=== PATIENT | female | born 1995 | race Hispanic/Latino ===

== ENCOUNTER 2016-07-26 04:49 | Outpatient (CLI) | payer OTHER ==
[~2016-07-26] VITALS: Ht 157.5 cm; Wt 69.0 kg
[~2016-07-26 04:49] MED LIST: ANUS2.5C2 PR; DOCU10CA PO; IBUPROFEN PO; NUPE1OIN2 TOP; TYLENOL PO; VITAPRTA PO
[2016-07-26 04:59] VITALS: BP 126/72
[2016-07-26 05:00] VITALS: BP 126/72
[2016-07-26 07:18] VITALS: BP 111/88
[2016-07-26 08:33] VITALS: BP 116/72
[2016-07-26 09:45] VITALS: BP 117/68
[2016-07-26 11:11] VITALS: BP 122/70
--- NOTE | 2016-07-26 12:16 | HPE ---
DATE OF ADMISSION: 07/26/2016 This lady is a 21-year-old, 2, para 1, last menstrual period 11/10/2015, estimated date of confinement (EDC) of 08/16/2016 at 36 and 6 weeks of gestation with uterine irritability. Monitored here for 4 hours. Throughout the 4 hours, her contractions spaced out. She had a category 1 strip. Cervix had not changed after three examinations. Her past history is on 06/21/2014, 40-week spontaneous vaginal delivery, female, 8 pounds 11 ounces with epidural. Risk factors is she is Group B streptococcus (GBS) positive, has asthma and is on albuterol on a as needed basis. Her laboratories show O+, HIV negative, hepatitis negative, RPR negative, rubella immune. Varicella nonimmune. Pap normal. Urine was GBS positive. Gonorrhea and Chlamydia negative. 1-hour glucose 97. On examination, symphysis fundus height is 37, vertex, OA posterior, high, soft, 50% effaced, maybe 1-2 cm. No vaginal bleeding or no vaginal loss. Blood pressure is 117/68, respirations are 18, pulse is 70, temperature 99.4, but she has blankets on her and she had the heat cranked up to 90 degrees in her room. Urine is 1.010, pH 7, negative, negative, negative. She is normocephalic, atraumatic. Neck with full range of motion. Pupils equal and reactive to light. Distal pulses symmetric. No evidence of DVT, PE or superficial phlebitis. Chest is clear bilaterally to bases. No wheezes or rhonchi. Uterus is nontender. Four quadrant bowel sounds. Appropriate symphysis fundus height. No rashes or lesions or pruritus. No arthralgia, myalgia. No complaints of cough, wheezes, shortness of breath or dyspnea on exertion. No allergies. No chest pain. Not bleeding. Neuro complete. No incontinence, urgency, frequency. No nausea, vomiting, diarrhea or constipation. No diabetic issues. Pap smear was normal. PAST SURGICAL HISTORY: Unremarkable. FAMILY HISTORY: Noncontributory. She does not smoke or drink. She does not abuse drugs. She is . She is in the . In summary, we have a 36 and 6 weeks of gestation with early uterine irritability. After 4 hours of evaluation and three examinations, no change in her cervix. She was discharged with precautions and also pelvic rest and quarters, as well as kick chart, premature rupture of membranes, labor, bleeding to contact us immediately. The patient has a followup in the clinic next week.
== END 2016-07-26 11:25 | disposition home or self-care (01) ==
LOC: M LDO 04:49
PROVIDERS: ATTEND Obstetrics & Gynecology
DX: O62.0 Primary inadequate contractions (principal); Z3A.36 36 weeks gestation of pregnancy; O98.513 Other viral diseases complicating pregnancy, third trimester; B95.1 Streptococcus, group B, as the cause of diseases classified elsewhere; O99.513 Diseases of the respiratory system complicating pregnancy, third trimester; J45.909 Unspecified asthma, uncomplicated; Z79.899 Other long term (current) drug therapy

== ENCOUNTER 2016-08-01 14:07 | Outpatient (CLI) | payer OTHER ==
[2016-08-01] VITALS (12 sets, daily range): BP systolic 112–138; BP diastolic 59–82
[~2016-08-01] VITALS: Ht 157.5 cm; Wt 70.0 kg
[2016-08-01 15:14] LABS: MEAN CORPUSCULAR HEMOGLOBIN 31.5 pg (27.0-33.0); MEAN CORPUSCULAR HGB CONC 34.4 g/dl (32.0-36.5); MEAN CORPUSCULAR VOLUME 91.5 fl (80.0-96.0); WHITE BLOOD COUNT 11.2 K/mm3 (4.0-10.0)
[2016-08-01] MEDS: ACETAMINOPHEN 500 MG TAB PO PRN ×2 (15:23→20:58)
[2016-08-01 15:25] LABS: ALBUMIN 2.8 GM/DL (3.2-5.2); ALBUMIN/GLOBULIN RATIO 0.76 (1.00-1.93); ALKALINE PHOSPHATASE 202 U/L (45-117); ALT/SGPT 16 U/L (12-78); ANION GAP 9 MEQ/L (8-16); AST/SGOT 16 U/L (15-37); BILIRUBIN,TOTAL 0.3 MG/DL (0.2-1.0); BLOOD UREA NITROGEN 9 MG/DL (7-18); CALCIUM LEVEL 8.9 MG/DL (8.5-10.1); CARBON DIOXIDE LEVEL 24 MEQ/L (21-32); CHLORIDE LEVEL 106 MEQ/L (98-107); CREATININE FOR GFR 0.61 MG/DL (0.55-1.02); GLOMERULAR FILTRATION RATE > 60.0 (>60); GLUCOSE, FASTING 93 MG/DL (70-105); POTASSIUM SERUM 3.9 MEQ/L (3.5-5.1); SODIUM LEVEL 139 MEQ/L (136-145); TOTAL PROTEIN 6.5 GM/DL (6.4-8.2); URIC ACID 4.5 MG/DL (2.6-6.0)
--- NOTE | 2016-08-01 17:37 | IPNPDOC ---
Text Note Date of Service The patient was seen on 08/01/16. NOTE Subjective: Natasha is a 20yo with SIUP at 37w6d who presented to clinic today for routine OB appointment and was noted to have a bp of 143/73. She has a hx of pre-eclampsia in her prior and endorses having Mg during her labor with her previous child. She was sent to L&D for bp monitoring and lab workup. Her appointment was at 1330 and by 1700, with bp monitoring q30 min, she had no further mild range bps and was completely normotensive. She did note to her nurse that she had a headache /, for which she receive 1g of PO Tylenol with complete resolution of her headache. Her lab workup was completely normal with the exception of urine protein:creatinine of 0.38. ROS: Admits: Gross movement, good oral hydration. Denies: Vaginal bleeding/loss of fluid, vision changes, abdominal pain, SOB Objective: BP in clinic 143/73 but bps q30min over 2 hours all normotensive since NST: Reactive with +accels, -decels, mod theresa [place]: rare CTX Physical Exam- General: WDWN gravid female in NAD Mental : AAOx3 Abdominal: Soft NT/ND without guarding or rebound Extremity: trace edema in LE bilaterally Labs: CBC: WBC 11.2, H/H 12.8/37.3, plt 217 CMP: Na 139, K 3.9, Cl 106, HCO3 24, BUN 9, creat 0.61, glucose 93 AST 16, ALT 16, uric acid 4.5 Urine protein 23.9/creatinine 62.2 = 0.38 Assessment: Natasha is a 20yo with SIUP at 37w6d who does not yet quite meet criteria for pre-eclampsia. Only one elevated bp reading in , today, was mild range with only normotensive values since starting observation on L&D over 2 hours ago. All labs normal with exception of urine protein:creatinine of 0.38. Slight headache on arrival completely resolved with Tylenol, no symptoms of pre-E. Benign physical exam. Reactive NST shows reassuring status. course uncomplicated. PMHx significant for pre-E with prior during labor, hx of asthma with prn albuterol. She is GBS positive based on early urine specimen. Also varicella non-immune. Plan: -I discussed with patient that she does not yet quite meet criteria for diagnosis of pre-eclampsia since only 1 isolated mild range bp in clinic with normotensive values since, along with her urine prot:creat elevation -Plan for observation for 24 hours to evaluate for any further elevated bps. If she has another elevated bp after 1930 (6 hours after her isolated bp elevation in clinic), will proceed with induction of labor since she is >37wk gestation. However, if that bp was truly isolated and she has no further elevations overnight, will plan for discharge with close follow-up for bps in clinic -Patient and seem amenable to this plan and all questions answered -Regular diet while she is here, NST q shift given reassuring status thus far, and vitals q2hr to monitor bps -medrec reviewed Dr. Rosalinda Ivory MD [place] ADELA VS,Heather, I+O VS, Heather, I+O Laboratory Tests 08/01/16 14:49 Calcium Level 8.9, Aspartate Amino Transf (AST/SGOT) 16, Alanine Aminotransferase (ALT/SGPT) 16, Alkaline Phosphatase 202 H, Total Bilirubin 0.3 , Uric Acid 4.5, Total Protein 6.5, Albumin 2.8 L, Red Blood Count 4.08, Mean Corpuscular Volume 91.5, Mean Corpuscular Hemoglobin 31.5, Mean Corpuscular Hemoglobin Concent 34.4, Red Cell Distribution Width 13.0 Vital Signs Date Time Temp Pulse Resp B/P Pulse Ox O2 Delivery O2 Flow Rate FiO2 08/01/16 14:33 97.9 72 18 128/78 ROSALINDA IVORY MD Aug 01, 2016 17:37
[2016-08-02] VITALS (8 sets, daily range): BP systolic 88–131; BP diastolic 50–86
--- NOTE | 2016-08-02 07:56 | IPNPDOC ---
Text Note Date of Service The patient was seen on 08/02/16. NOTE Subjective: Natasha is a 20yo with SIUP at 38w0d who was kept for 24- hr observation after presenting to clinic yesterday for routine OB appointment and being noted to have a bp of 143/73. She has a hx of pre-eclampsia in her prior and endorses having Mg during her labor with her previous child. She was sent to L&D for bp monitoring and lab workup. Her lab workup was completely normal with the exception of urine protein:creatinine of 0.38, so she was kept to see if she would have another mild range bp and then meet criteria for pre-eclampsia. However, overnight, Natasha's bp's have been extremely normotensive, even down to 80's/50's, with no repeated mild range bp. She did have a slight headache at one point for which she received Tylenol, and had complete resolution of headache. She has had no vision changes, no abdominal pain, no SOB. No painful ctx, no LOF, no vaginal bleeding and she feels good movement. Objective: BP's overnight all normotensive NSTs: Reactive with +accels, -decels, mod theresa [place]: rare CTX Physical Exam- General: WDWN gravid female in NAD Mental : AAOx3 Cardiac: S1S2 present, no murmur Lungs: CTAB with no w/c/r Abdominal: Soft NT/ND without guarding or rebound Extremity: trace edema in LE bilaterally Labs: 08/01/16 CBC: WBC 11.2, H/H 12.8/37.3, plt 217 CMP: Na 139, K 3.9, Cl 106, HCO3 24, BUN 9, creat 0.61, glucose 93 AST 16, ALT 16, uric acid 4.5 Urine protein 23.9/creatinine 62.2 = 0.38 Assessment: Natasha is a 20yo with SIUP at 38w0d who still does not meet criteria for pre-eclampsia having protein: creatinine of 0.38, but only 1 mild range bp ever noted in , yesterday. Completely normotensive overnight. No symptoms of pre-E. All other PIH labs normal. Benign physical exam. Reactive NSTs show reassuring status. course uncomplicated. PMHx significant for pre-E with prior during labor, hx of asthma with prn albuterol. She is GBS positive based on early urine specimen. Also varicella non-immune. Plan: -Continue observation for total of 24 hours to evaluate for any further elevated bps. If she has another elevated bp, will proceed with induction of labor. However, if that bp was truly isolated and she has no further elevations , will plan for discharge this afternoon with close follow-up for bps in clinic -Plan re-discussed with patient and she is amenable -Regular diet while she is here, NST q shift given reassuring status thus far, and vitals q2hr to monitor bps Dr. Zoie Ivory MD [place] [facility] VS,Fishbone, I+O VS, [place], I+O Laboratory Tests 08/01/16 14:49 Calcium Level 8.9, Aspartate Amino Transf (AST/SGOT) 16, Alanine Aminotransferase (ALT/SGPT) 16, Alkaline Phosphatase 202 H, Total Bilirubin 0.3 , Uric Acid 4.5, Total Protein 6.5, Albumin 2.8 L, Red Blood Count 4.08, Mean Corpuscular Volume 91.5, Mean Corpuscular Hemoglobin 31.5, Mean Corpuscular Hemoglobin Concent 34.4, Red Cell Distribution Width 13.0 Vital Signs Date Time Temp Pulse Resp B/P Pulse Ox O2 Delivery O2 Flow Rate FiO2 08/02/16 06:10 98.2 70 18 115/75 98 I&O- Last 24 Hours up to 6 AM 08/02/16 06:00 Intake Total 360 ml Output Total 1000 ml Balance -640 ml ZOIE IVORY MD Aug 02, 2016 07:56
--- NOTE | 2016-08-02 14:15 | IPNPDOC ---
Obstetrical Progress Note Date of Service The patient was seen on 08/02/16 at 14:10. Progress Note Natasha is a 20yo with SIUP at 38+1 who was kept for 24-hr observation after presenting to clinic yesterday for routine OB appointment and being noted to have a bp of 143/73. She has a hx of pre-eclampsia in her prior and endorses having Mg during her labor with her previous child. She was sent to L&D for bp monitoring and lab workup. Her lab workup was completely normal with the exception of urine protein:creatinine of 0.38, so she was kept to see if she would have another mild range bp and then meet criteria for pre- eclampsia. However, overnight, Natasha's bp's have been extremely normotensive , even down to 80's/50's, with no repeated mild range bp. She did have a slight headache at one point for which she received Tylenol, and had complete resolution of headache. She has had no vision changes, no abdominal pain, no SOB. No painful ctx, no LOF, no vaginal bleeding and she feels good movement. Objective: BP's throughout stay all normotensive NSTs: Reactive with mod variability, + accels, -decels [place]: rsingle CTX noted Physical Exam- General: WDWN gravid female in NAD Mental : AAOx3 Cardiac: S1S2 present, no murmur Lungs: CTAB with no w/c/r Abdominal: Soft NT/ND without guarding or rebound Extremity: trace edema in LE bilaterally Labs: 08/01/16 CBC: WBC 11.2, H/H 12.8/37.3, plt 217 CMP: Na 139, K 3.9, Cl 106, HCO3 24, BUN 9, creat 0.61, glucose 93 AST 16, ALT 16, uric acid 4.5 Urine protein 23.9/creatinine 62.2 = 0.38 Assessment: Natasha is a 20yo with SIUP at 38+1 who still does not meet criteria for pre-eclampsia having protein: creatinine of 0.38, but only 1 mild range bp ever noted in , yesterday. Completely normotensive overnight. No symptoms of pre-E. All other PIH labs normal. Benign physical exam. Reactive NSTs show reassuring status. course uncomplicated. PMHx significant for pre-E with prior during labor, hx of asthma with prn albuterol. She is GBS positive based on early urine specimen. Also varicella non-immune. Plan: -Discharge to home now with strict return precautions for PERSON, visual changes, RUQ pain, and n/v. -f/u in OB clinic tomorrow [id number] for blood pressure check. Kelly TORRES, VIK VS, I&O, 24H, Fishbone Vital Signs/I&O Vital Signs Date Time Temp Pulse Resp B/P Pulse Ox O2 Delivery O2 Flow Rate FiO2 08/02/16 13:51 98.4 86 18 125/86 08/02/16 06:10 98 I&O- Last 24 Hours up to 6 AM 08/02/16 05:59 Intake Total 240 ml Output Total 400 ml Balance -160 ml Laboratory Data 24H LABS Laboratory Tests 2 08/01/16 14:49: Blood Urea Nitrogen 9, Creatinine 0.61, Sodium Level 139, Potassium Level 3.9, Chloride Level 106, Carbon Dioxide Level 24, Calcium Level 8.9, Aspartate Amino Transf (AST/SGOT) 16, Alanine Aminotransferase (ALT/SGPT) 16, Alkaline Phosphatase 202H, Total Bilirubin 0.3, Uric Acid 4.5, Total Protein 6.5, Albumin 2.8L, Albumin/Globulin Ratio 0.76L, Anion Gap 9, Glomerular Filtration Rate > 60.0 CBC/BMP Laboratory Tests 08/01/16 14:49 Calcium Level 8.9, Aspartate Amino Transf (AST/SGOT) 16, Alanine Aminotransferase (ALT/SGPT) 16, Alkaline Phosphatase 202 H, Total Bilirubin 0.3 , Uric Acid 4.5, Total Protein 6.5, Albumin 2.8 L, Red Blood Count 4.08, Mean Corpuscular Volume 91.5, Mean Corpuscular Hemoglobin 31.5, Mean Corpuscular Hemoglobin Concent 34.4, Red Cell Distribution Width 13.0 KELLY MURRY CNM Aug 02, 2016 14:15
== END 2016-08-02 14:05 | disposition home or self-care (01) ==
LOC: M LDO 14:07 → M OBS 19:00 → M LDO 08-02 14:05
PROVIDERS: ATTEND Obstetrics & Gynecology
DX: O26.893 Other specified pregnancy related conditions, third trimester (principal); R03.0 Elevated blood-pressure reading, without diagnosis of hypertension; O09.93 Supervision of high risk pregnancy, unspecified, third trimester; Z3A.37 37 weeks gestation of pregnancy

== ENCOUNTER 2016-08-12 05:42 | Inpatient (IN) | payer OTHER ==
[~2016-08-12] VITALS: Ht 157.5 cm; Wt 79.0 kg
[2016-08-12] MEDS ORDERED: OXYTOCIN 30 UNITS IN 0.9% NaCl 500ML IV BAG (J2590) As Ordered ONE (06:03)
[2016-08-12] MEDS ORDERED: OXYTOCIN DRIP 30 UNITS in APPROPRIATE DILUENT 1 EA IV SCH (06:10)
[2016-08-12] MEDS ORDERED: MEASLES,MUMPS,RUBELLA VACCINE INJ (MMR-II) (90707) SC SCH (06:15)
[2016-08-12] MEDS ORDERED: DOCUSATE SODIUM 100 MG CAP PO PRN (06:15)
[2016-08-12] MEDS ORDERED: RHOGAM 300 MCG (1500 IU) INJ (J2790) IM SCH (06:15)
[2016-08-12] MEDS ORDERED: DIBUCAINE 1% OINTMENT 30GM TOP PRN (06:15)
[2016-08-12] MEDS ORDERED: OXYTOCIN INJ 10 UNITS/ML VIAL (J2590) IM ONE (06:15)
[2016-08-12] MEDS ORDERED: ANUSOL HC CREAM 30GM TOP PRN (06:15)
[2016-08-12] MEDS ORDERED: METHYLERGONOVINE MALEATE 0.2 MG TAB PO PRN (06:15)
[2016-08-12 06:23] LABS: CORD GAS ABE A -2.2; CORD GAS ABE V -3.5; CORD GAS HCO3 A 23.7 MEQ/L; CORD GAS HCO3 V 19.5 MEQ/L; CORD GAS O2 SAT A 22.9 %; CORD GAS O2 SAT V 63.8 %; CORD GAS PCO2 A 45.5 mmHg; CORD GAS PCO2 V 27.9 mmHg; CORD GAS PH A 7.334 UNITS; CORD GAS PH V 7.462 UNITS; CORD GAS PO2 A 14.8 mmHg; CORD GAS PO2 V 26.2 mmHg; CORD GAS SBC A 21.4 MEQ/L; CORD GAS TCO2 A 25.1 MEQ/L; CORD GAS TCO2 V 20.3 MEQ/L
[2016-08-12] MEDS: ACETAMINOPHEN 500 MG TAB PO PRN ×2 (07:09→21:25)
[2016-08-12 08:06] LABS: MEAN CORPUSCULAR HEMOGLOBIN 31.9 pg (27.0-33.0); MEAN CORPUSCULAR HGB CONC 34.3 g/dl (32.0-36.5); MEAN CORPUSCULAR VOLUME 92.9 fl (80.0-96.0); WHITE BLOOD COUNT 19.1 K/mm3 (4.0-10.0)
[2016-08-12] MEDS: PRENATAL VITAMIN TAB PO SCH (09:00)
[2016-08-12 18:27] VITALS: BP 141/73
[2016-08-12] MEDS: IBUPROFEN 800 MG TAB PO PRN (18:36)
[2016-08-13] MEDS: IBUPROFEN 800 MG TAB PO PRN ×2 (04:37→16:09)
[2016-08-13 05:29] VITALS: BP 119/72
[2016-08-13 06:45] LABS: MEAN CORPUSCULAR HEMOGLOBIN 32.3 pg (27.0-33.0); MEAN CORPUSCULAR HGB CONC 34.3 g/dl (32.0-36.5); MEAN CORPUSCULAR VOLUME 94.2 fl (80.0-96.0); RED CELL DISTRIBUTION WIDTH 13.4 % (11.5-14.5); WHITE BLOOD COUNT 10.8 K/mm3 (4.0-10.0)
[2016-08-13] MEDS: ACETAMINOPHEN 500 MG TAB PO PRN ×2 (08:10→21:17)
[2016-08-13] MEDS: PRENATAL VITAMIN TAB PO SCH (08:10)
--- NOTE | 2016-08-13 12:52 | HPE ---
DATE OF ADMISSION: 08/12/2016 This lady is a 21-year-old 2, para 1, last menstrual period (LMP) 11/10/2015, estimated date of confinement (EDC) 08/16/2016, history of active labor since 01008/12/2016. Came in at 6 o'clock this morning. Ruptured membranes, fully dilated. Delivered precipitously a live male weighing 7 pounds 0 ounces, 3446 grams scores of 9 and 9 at one and five minutes respectively. Arterial and venous pH performed. Placenta delivered spontaneously thereafter. Three-vessel cord, membranes and tissues intact. Perineum was intact. Uterus is a bit atonic, required intramuscular (IM) Pitocin 10 mg and then an intravenous (IV) of Pitocin 125 an hour. PAST HISTORY: In 2013, at 40 weeks spontaneous delivery of the female, 8 pounds 11 ounces, with epidural. RISK FACTORS: She is group B Streptococcus (GBS) positive and has asthma. LABORATORIES: Show O+, HIV negative, rubella immune. Varicella nonimmune, rapid plasma reagin (RPR) negative. Pap normal. Group B Streptococcus (GBS) urine was positive. One-hour glucose 97. Cerebrospinal fluid (CF) declined. SUMMARY: I have an active lady in fully dilated precipitously delivered on entering the door, a live male . The patient and baby tolerated the procedure well.
[2016-08-13 18:03] VITALS: BP 110/58
--- NOTE | 2016-08-14 05:19 | IPNPDOC ---
Text Note Date of Service The patient was seen on 08/14/16. NOTE Natasha is a 21yo doing well on PPD 2 s/p uncomplicated at term. She is bottle feeding. Lochia normal, spontaneously voiding and ambulating without difficulty. Tolerating regular diet. Denies f/c/n/v/SOB/CP/PERSON/abdominal pain. Vitals wnl, afebrile Exam: General: WDWN, NAD, resting comfortably Cardiac: S1S2 present, no murmur Lungs: CTAB without wheeze/crackles Abdomen: soft, NTTP, fundus firm u-2cm Extremities: no tenderness of calves bilaterally Assessment: Natasha is a 21yo doing well on PPD 2 s/p uncomplicated at term. Meeting all milestones. No e/o infection, hemodynamically stable. Plan: -discharge to home with routine follow-up for 6wk PP visit -home meds already given from clinic stock -desires Mirena IUD for contraception Dr. Zoie Ivory MD [place] ADELA VS,Heather, I+O VS, Heather, I+O Laboratory Tests 08/13/16 06:21 Red Blood Count 3.33 L, Mean Corpuscular Volume 94.2, Mean Corpuscular Hemoglobin 32.3, Mean Corpuscular Hemoglobin Concent 34.3, Red Cell Distribution Width 13.4 Vital Signs Date Time Temp Pulse Resp B/P Pulse Ox O2 Delivery O2 Flow Rate FiO2 08/13/16 18:03 98.1 72 18 110/58 ZOIE IVORY MD Aug 14, 2016 05:19
[2016-08-14 06:28] VITALS: BP 133/69
[2016-08-14] MEDS ORDERED: ACET50TA PO (08:31)
[2016-08-14] MEDS ORDERED: IBUP-1114 PO (08:31)
[2016-08-14] MEDS ORDERED: COLA100C PO (08:31)
== END 2016-08-14 10:45 | disposition home or self-care (01) | DRG 775 ==
LOC: M LDO 05:42 → M LDI 05:45 → M OBS 11:27
PROVIDERS: ADMIT Obstetrics & Gynecology; ATTEND Obstetrics & Gynecology
PROC: 10E0XZZ Delivery of Products of Conception, External Approach (ICD-10-PCS; principal; 2016-08-12)
DX: O62.3 Precipitate labor (principal); O99.824 Streptococcus B carrier state complicating childbirth; Z3A.39 39 weeks gestation of pregnancy; O99.52 Diseases of the respiratory system complicating childbirth; J45.909 Unspecified asthma, uncomplicated; Z37.0 Single live birth

== ENCOUNTER 2016-08-21 15:06 | Emergency (ER) | payer OTHER ==
[~2016-08-21] VITALS: Ht 157.5 cm; Wt 68.0 kg
[~2016-08-21 15:06] MED LIST changes: +ACET50TA PO; +COLA100C PO; +IBUP-1114 PO
[2016-08-21] MEDS ORDERED: METOCLOPRAMIDE INJ 10MG/2ML VIAL (J2765) IV ONE (16:30)
[2016-08-21] MEDS ORDERED: NS 1,000 ML IV ONE (16:30)
[2016-08-21] MEDS ORDERED: PANTOPRAZOLE 40MG INJ (PROTONIX) (C9113) IV ONE (16:30)
[2016-08-21] MEDS ORDERED: GI COCKTAIL 50ML BTL(HYOSCYAMINE/MAALOX/LIDOCAINE VISCOUS)(1:3:1) PO ONE (16:30)
[2016-08-21 16:48] LABS: BASO % 0.2 % (0.0-1.0); EOS # 0.3 K/mm3 (0.0-0.50); LARGE UNSTAINED CELL # 0.1 K/mm3 (0.0-0.4); LARGE UNSTAINED CELL % 1.2 % (0.0-4.0); LYMPH # 2.3 K/mm3 (1.5-6.5); LYMPH % 22.1 % (24.0-44.0); MEAN CORPUSCULAR HEMOGLOBIN 31.4 pg (27.0-33.0); MEAN CORPUSCULAR HGB CONC 33.4 g/dl (32.0-36.5); MONO # 0.3 K/mm3 (0.0-0.8); MONO % 3.1 % (0.0-5.0); NEUTROPHILS # 6.9 K/mm3 (1.8-7.7); NEUTROPHILS % 70.5 % (36.0-66.0); PLATELET COUNT, AUTOMATED 414 k/mm3 (150-450); RED CELL DISTRIBUTION WIDTH 12.5 % (11.5-14.5); WHITE BLOOD COUNT 9.8 K/mm3 (4.0-10.0)
[2016-08-21 16:54] LABS: ALBUMIN/GLOBULIN RATIO 0.75 (1.00-1.93); ALKALINE PHOSPHATASE 180 U/L (45-117); ALT/SGPT 21 U/L (12-78); ANION GAP 9 MEQ/L (8-16); AST/SGOT 21 U/L (15-37); BILIRUBIN,DIRECT < 0.1 MG/DL (0.0-0.2); BILIRUBIN,TOTAL 0.2 MG/DL (0.2-1.0); BLOOD UREA NITROGEN 14 MG/DL (7-18); CALCIUM LEVEL 9.1 MG/DL (8.5-10.1); CARBON DIOXIDE LEVEL 26 MEQ/L (21-32); CHLORIDE LEVEL 107 MEQ/L (98-107); CREATININE FOR GFR 0.74 MG/DL (0.55-1.02); GLOMERULAR FILTRATION RATE > 60.0 (>60); GLUCOSE, FASTING 97 MG/DL (70-105); POTASSIUM SERUM 3.9 MEQ/L (3.5-5.1); SODIUM LEVEL 142 MEQ/L (136-145)
[2016-08-21] MEDS ORDERED: SUCRALFATE SUSP 1GM/10ML UD PO ONE (18:00)
[2016-08-21 18:06] LABS: CONTROL LINE HCG INT CTR LINE PRESENT
[2016-08-21] MEDS ORDERED: SUCRALFATE 1 GM TAB PO ONE (18:30)
[2016-08-21] MEDS ORDERED: SUCR1SS PO (19:41)
[2016-08-21] MEDS ORDERED: TAGA200T3 PO (19:47)
[2016-08-21 20:02] VITALS: BP 117/61
== END 2016-08-21 20:08 | disposition home or self-care (01) ==
LOC: EDBD 15:06 → M ED 16:39
DX: K29.00 Acute gastritis without bleeding (principal); R51 Headache; J45.909 Unspecified asthma, uncomplicated; D64.9 Anemia, unspecified; Z79.899 Other long term (current) drug therapy
CPT/HCPCS: 36415; 80048; 80076; 83690; 84702; 84703; 85025; 96374; 96375; 99283; C9113; J2765